=== PATIENT | male | born 1965 | race Caucasian/White ===

== ENCOUNTER 2023-03-06 09:41 | Day surgery (SDC) | payer OTHER ==
[~2023-03-06] VITALS: Ht 177.8 cm; Wt 104.3 kg
[2023-03-06] MEDS ORDERED: TESTOSTERONE200 MG (10:28)
[2023-03-06] MEDS ORDERED: TERB250 (10:28)
[2023-03-06] MEDS ORDERED: ATOR10 (10:28)
[2023-03-06 13:19] VITALS: BP 113/78
== END 2023-03-06 13:20 | disposition home or self-care (01) ==
LOC: ORSCSDS 09:41
PROVIDERS: Internal Medicine Gastroenterology
PROC: 0DJD8ZZ Inspection of Lower Intestinal Tract, Via Natural or Artificial Opening Endoscopic (ICD-10-PCS; principal; 2023-03-06 11:15)
DX: Z12.11 Encounter for screening for malignant neoplasm of colon (principal); K57.30 Diverticulosis of large intestine without perforation or abscess without bleeding; E78.5 Hyperlipidemia, unspecified; Z79.899 Other long term (current) drug therapy; Z87.891 Personal history of nicotine dependence
CPT/HCPCS: J2704; J7120